=== PATIENT | male | born 1950 | race Caucasian/White ===

== ENCOUNTER → 2017-07-24 | Outpatient (CLI) | payer MEDICARE | END | disposition home or self-care (01) | LOC: MAMMO 10:30 | DX: N63.10 Unspecified lump in the right breast, unspecified quadrant (principal); R92.8 Other abnormal and inconclusive findings on diagnostic imaging of breast ==

== ENCOUNTER → 2025-04-06 | Outpatient (CLI) | payer MEDICARE | END | disposition home or self-care (01) | LOC: US 08:36 | PROVIDERS: ATTEND Physician Assistant | DX: I65.23 Occlusion and stenosis of bilateral carotid arteries (principal); R42 Dizziness and giddiness; R20.0 Anesthesia of skin ==

== ENCOUNTER → 2025-04-09 | Outpatient (CLI) | payer MEDICARE ==
[~2025-04-09] MED LIST: GADOTERATE MEGLUMINE 10 MMOL/20 ML VIAL IV ONE
== END | disposition home or self-care (01) ==
LOC: MRI 03-25 09:00 → CARD 03-25 10:00 → MRI 00:34
PROVIDERS: ATTEND Physician Assistant
DX: J32.0 Chronic maxillary sinusitis (principal); R20.0 Anesthesia of skin; R42 Dizziness and giddiness

== ENCOUNTER → 2025-04-30 | Outpatient (CLI) | payer MEDICARE | END | disposition home or self-care (01) | LOC: CARD 04-09 09:00 | PROVIDERS: ATTEND Physician Assistant | DX: R00.0 Tachycardia, unspecified (principal); R42 Dizziness and giddiness; R20.0 Anesthesia of skin ==